=== PATIENT | female | born 1955 ===

== ENCOUNTER 2017-12-06 17:14 | Emergency (ER) | payer OTHER ==
[2017-12-06 17:32] VITALS: BP 138/84; PULSE 92; RESP 18; TEMP 99; O2SAT 99; BMI 32.3
--- NOTE | 2017-12-06 18:29 | C.PDOC ---
History Of Present Illness 62yo female with history of NIDDM, hypertension, comes in for evaluation of a burning/pruritic rash to right side forehead gradually developing over the past 4 days. Otherwise, patient denies fever, chills, headache, dizziness, vertigo, recent illnesses, blurred vision, double vision, FB sensation, light sensitivity , sore throat, chest pain, SOB, dyspnea, wheezing, denies any other active complaints, denies sick contact or travel. Time Seen by Provider: 12/06/17 17:59 Chief Complaint (Nursing): Eye Problem History Per: Patient History/Exam Limitations: no limitations Onset/Duration Of Symptoms: Days (4) Current Symptoms Are (Timing): Still Present Injury To Eye?: No Additional History Per: Patient Past Medical History Reviewed: Historical Data, Nursing Documentation, Vital Signs Vital Signs: Last Vital Signs Temp 99.0 F 12/06/17 17:32 Pulse 92 H 12/06/17 17:32 Resp 18 12/06/17 17:32 BP 138/84 12/06/17 17:32 Pulse Ox 99 12/06/17 18:29 - Medical History PMH: Diabetes, HTN Surgical History: No Surg Hx Family History: States: No Known Family Hx - Social History Hx Tobacco Use: No Hx Alcohol Use: No Hx Substance Use: No - Immunization History Hx Tetanus Toxoid Vaccination: No Hx Influenza Vaccination: No Hx Pneumococcal Vaccination: No Review Of Systems Except As Marked, All Systems Reviewed And Found Negative. Constitutional: Negative for: Fever, Chills Eyes: Negative for: Vision Change ENT: Negative for: Throat Pain Cardiovascular: Negative for: Chest Pain Respiratory: Negative for: Wheezing Skin: Positive for: Rash Physical Exam - Physical Exam Appears: No Acute Distress Skin: Warm, Dry, Rash (scattered vesicular rash with erythematous base over right scalp extend down to forehead and right eyebrow region. No edema, no cellulitis, no evidence of superimposed inf ) Head: Normacephalic Eye(s): bilateral: PERRL, EOMI (no pain or limittaion on extralcular movement), right: Other (no fluoresceine uptake, no corneal FB noted. No eyelid inflammation) Ear(s): Bilateral: Normal Nose: No Flaring, No Discharge, No Deformity, No Tenderness Oral Mucosa: Moist, No Drooling Tongue: No Swelling, No Lesions Lips: No Swelling, No Lesions Throat: No Erythema, No Exudate, No Drooling, Other (uvula midline, no edema.) Neck: Supple Cardiovascular: Rhythm Regular, No Murmur, No JVD Respiratory: No Decreased Breath Sounds, No Accessory Muscle Use, No Stridor, No Wheezing Extremity: Normal ROM, No Deformity, No Swelling Neurological/Psych: Oriented x3, Normal Speech ED Course And Treatment O2 Sat by Pulse Oximetry: 99 (RA) Pulse Ox Interpretation: Normal Progress Note: VA: R20/70, L20/50, B/L20/70. On re-eval, pt is afebrile, hemodynamicaly stable. non-toxic. Ambulatory in ED with stable gait. PulsEOx 99% RA. Had: AT/NC, Right eye: exam c/w vesicular rash to Right frontal scalp extend down to Right forehead, eyebrown likely c/w H.Zoster . No Right eye involvement, no pain or limitation on extraocular movement. ENT: no acute findings. uvual midline, no edema. neck: Supple, (-) JVD. Lungs: CTA B/L, BS equal B/L. Abd: benign, (-) guarding, (-) rebound. Neurologicaly intact. Pt advised on course of ds and ref. to f/u with OPth in 1-2 days for re-eavl. return if any new changes. Disposition Counseled Patient/Family Regarding: Diagnosis, Need For Followup, Rx Given - Disposition Referrals: Grecia Mantilla APN [Advanced Practice Nurse] - Edward Gaspar [Staff Provider] - Disposition: HOME/ ROUTINE Disposition Time: 18:30 Condition: STABLE Additional Instructions: Encourage fluids Take medication as prescribed Follow up with PMD, Ophthalmology in 2-3 days for re-evaluation and further treatment as need return to Ed if any worsening or new changes. 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 - Scribe Statement The provider has reviewed the documentation as recorded by the Scribe (Haleigh Romero) Provider Attestation: All medical record entries made by the Scribe were at my direction and personally dictated by me. I have reviewed the chart and agree that the record accurately reflects my personal performance of the history, physical exam, medical decision making, and the department course for this patient. I have also personally directed, reviewed, and agree with the discharge instructions and disposition.
== END 2017-12-06 19:05 | disposition home or self-care (01) ==
LOC: C.ER 17:14
DX: B02.9 Zoster without complications (principal)